=== PATIENT | male | born 1970 | race Caucasian/White ===

== ENCOUNTER 2019-09-08 10:19 | Outpatient (REF) | payer BC, SELFPAY ==
[2019-09-08 14:00] LABS: ALT 37 U/L (16-63); AST 20 U/L (15-37); Albumin 4.3 g/dL (3.4-5.0); Alkaline Phosphatase 54 U/L (46-116); Anion Gap 10.3 mmol/L (3-11); BUN 11 mg/dL (7-18); Bilirubin, Total 0.7 mg/dL (0.2-1.0); CO2 27.7 mmol/L (21.0-32.0); CREATININE 1.04 mg/dL (0.70-1.30); Calcium 9.4 mg/dL (8.5-10.1); Calculated LDL 130 mg/dL (<100); Chloride 102 mmol/L (98-107); Cholesterol 211 mg/dL (<200); Glucose 105 mg/dL (74-106); HDL Cholesterol 42 mg/dL (40-60); Potassium 4.3 mmol/L (3.5-5.1); Sodium 140 mmol/L (136-145); Total Protein 7.3 g/dL (6.4-8.2); Triglyceride 195 mg/dL (<150)
[2019-09-08 14:30] LABS: HCT 47.9 % (40.0-50.0); Mean Corp. HGB Concentration 33.4 g/dL (32.0-36.0); Mean Corpuscular Hemoglobin 29.7 pg (27.0-33.0); Mean Corpuscular Volume 88.9 fL (80-95); Mean Platelet Volume 11.1 fL (8.0-11.0); Platelet Count 275 x1000/uL (130-400); RBC 5.39 m/cumm (4.50-6.00); RBC Distribution Width 13.5 % (11.8-14.1); White Blood Cell Count 5.43 k/cumm (4.4-10.8)
== END 2019-09-08 10:39 ==
LOC: NCHCN 10:19
PROVIDERS: PCP Family Medicine; Visit Provider Family Medicine
DX: Z00.00 Encounter for general adult medical examination without abnormal findings (principal); I10 Essential (primary) hypertension; Z86.69 Personal history of other diseases of the nervous system and sense organs
CPT/HCPCS: 80053; 80061; 85027

== ENCOUNTER 2020-01-02 07:34 | Outpatient (CLI) | payer BC, SELFPAY ==
[2020-01-02 19:18] LABS: COVID-19 RT-PCR UVMMC Result Negative (Negative)
== END 2020-01-02 07:54 ==
PROVIDERS: PCP Family Medicine; Visit Provider Surgery
DX: Z01.818 Encounter for other preprocedural examination (principal); Z11.59 Encounter for screening for other viral diseases
CPT/HCPCS: U0003

== ENCOUNTER 2020-01-05 08:17 | Day surgery (SDC) | payer BC, SELFPAY ==
[2020-01-05 08:34] VITALS: BP 140/94; PULSE 79; RESP 16; TEMP 36.6; O2SAT 96
[2020-01-05] MEDS: Lactated Ringers 1,000 ML 80 ML IV (08:57)
[2020-01-05] MEDS: Sodium Citrate 30 ML CUP PO (09:25)
[2020-01-05] MEDS: Gabapentin 300 MG CAP PO (09:25)
--- NOTE | 2020-01-05 11:30 | W.PM.OP ---
Date of service: 01/05/20 Time of Service: 11:30 Operative Note Operative Note DATE OF PROCEDURE: 01/05/20 PRE-OP DIAGNOSIS: symptomatic umbilical hernia POST-OP DIAGNOSIS: same PROCEDURE: open repiar w/ small mesh SURGEON: Gloria Nichols PLODDING MACHINE OPERATOR: Gloria Mathews ANESTHESIA: MAC ESTIMATED BLOOD LOSS: 2 PATHOLOGY: none sent COMPLICATIONS: None Patient was transported to: same day Patient's condition: stable Procedure Description: SURGEON: Gloria Nichols DO ANESTHESIA: MAC. ESTIMATED BLOOD LOSS: Less than 5 mL. COMPLICATIONS: The patient tolerated the procedure well without complications. INDICATIONS: The patient is seen at the request of for symptomatic umbilical hernia and is here today for repair. Informed consent was obtained, explaining risks and benefits of the procedure including but not limited to bleeding, infection, pneumonia, blood clots, recurrence, chronic pain, chronic numbness, reaction to mesh necessitating removal, complications of anesthesia and other unforetold complications. DESCRIPTION OF PROCEDURE: The patient was brought to the operating suite and placed in supine position. Anesthesia was administered per the Department of Anesthesia. Patient prepped and draped in the usual sterile fashion using DuraPrep scrub solution. IV antibiotics were administered. Pause for the cause was done. A 1-inch incision was made superiorly to the umbilicus. Umbilicus was dissected off the fascia. The fascia was dissected off from surrounding tissue. There is omentum protruding. This was returned to the abdomen. It is not infarcted. A small Kerlix /Ventriluxpatch was then placed in the defect, the defect was closed, oversewn with 2-0 vicryl and was copiously irrigated. Deep tissue was approximated with 3-0 Vicryl and skin was approximated with 4-0 Monocryl in a running subcuticular fashion. Skin glue and sterile dressings are applied. The patient tolerated the procedure well without complications and was transferred to recovery room in stable condition. GLORIA NICHOLS DO
--- NOTE | 2020-01-05 11:33 | W.PM.DSUDISC ---
Discharge Plan Disposition Patient Disposition: HOME Condition: Good Discharge Details Reason For Visit: umbilical hernia repair Attending Provider: Gloria Leo Primary Care Provider: Keiry Earl Home Meds and New Rx's Prescriptions: New tramadol [Ultram] 50 mg tablet 50 mg PO Q6H PRN (Reason: pain) Qty: 7 RF: 0 Continued albuterol sulfate [Ventolin HFA] 90 mcg/actuation HFA aerosol inhaler 2 puff IH Q6H PRNRF: 0 sumatriptan succinate [Imitrex] 25 MG tablet 25 mg PO PRN PRNRF: 0 ibuprofen 200 mg Tablet 600 mg PO PRN PRNRF: 0 Discharge Instructions Additional Instructions: Dr. Leo HERNIA REPAIR ? POSTOPERATIVE INSTRUCTIONS Patients who have this type of surgery can usually be expected to return to work within two weeks and have minimal amounts of discomfort. ? ACTIVITY: The day of surgery should be spent resting. However, you can be up for short periods of time, I.E., going to the bathroom or kitchen. Avoid lifting or straining. On the day following surgery, you can be up and about as desired. ? LIFTING: Restrict your lifting to no more than five (5) pounds for the first week following surgery. For the second week after surgery, don?t lift more than ten pounds. We will decide when you are done with restrictions and when you can return to work, at your follow-up appointment. ? DIET: There are no dietary restrictions following surgery. However, you may want to start with small amounts of liquids to avoid nausea the day of surgery. ? INCISION CARE: You will notice purple skin glue closing the incision. Do not peel this off- it will wear off on its own. After 24 hours you may shower. The dressing may be replaced for comfort, but is not necessary. An ice bag may be applied to the incision for 72 hours following surgery. ? SIGNS OF INFECTION: It is not unusual to have some black and blue discoloration of the skin around the incision, but also scrotum and penis. It will slowly disappear. If you have any increased redness, drainage, fever (above 100 degrees), please contact your doctor for an examination. ? DISCOMFORT: You may expect to have some mild discomfort at the incision sight. If severe pain develops you should contact your doctor for further instructions. ? URINATION: Patients who have surgery occasionally have problems urinating. If you experience problems and are not able to urinate within 6 hours following your surgery, please call your doctor immediately or go to your nearest Emergency Room for evaluation. ? DRIVING: NO driving for five (5) days after surgery or if you are still taking narcotic pain medication. ? MEDICATIONS: Alternate Tylenol 1000mg by mouth every 8hours and Ibuprofen 600mg every 6hours. Take the Tylenol and ibuprofen continuously for the first 72hrs- not just when you have pain. Use the tramadol for breakthrough pain. Use ICE! Twenty minutes on, and then off, continuously for the first 72hours. If you are taking narcotic pain medication, follow the instructions on the label and do not drive. Pain medications can make you very constipated. Make sure you are moving your bowels daily. If not, take Miralax, milk of magnesia or magnesium citrate. ? REPORT: Unusual swelling, severe pain, unresolved nausea, signs of infection, or difficulty in urination to your surgeon. Follow up in clinic with Dr. Leo in 1-2 weeks. [phone] Activity:: see above Remove Dressings/Wound Care:: 24 hours Shower/Bathe:: 24 hours Diet:: As Tolerated Discharge Orders Discharge Orders: Discharge Order (Routine); Ordered 01/05/20 Ordered By: Gloria Leo DS: Diagnosis Discharge Diagnosis (1) Asthma: Status: None (2) Glaucoma: Status: Chronic (3) Umbilical hernia: Status: Acute
[2020-01-05 12:38] VITALS: BP 129/92; PULSE 55; RESP 16; TEMP 35.7; O2SAT 100
[2020-01-05 13:15] VITALS: BP 135/91; PULSE 53; RESP 16; TEMP 36; O2SAT 99
== END 2020-01-05 13:10 | disposition home or self-care (01) ==
PROVIDERS: PCP Family Medicine; Visit Provider Surgery
PROC: (CPT 49585; principal; 2020-01-05 10:00)
DX: K42.9 Umbilical hernia without obstruction or gangrene (principal); I10 Essential (primary) hypertension; J45.909 Unspecified asthma, uncomplicated
CPT/HCPCS: 49585; C1781; J2001

== ENCOUNTER 2021-06-03 10:35 | Outpatient (REF) | payer BC, SELFPAY ==
[2021-06-03 15:01] LABS: Calculated LDL 164 mg/dL (<100); Cholesterol 242 mg/dL (<200); HDL Cholesterol 46 mg/dL (40-60); Triglyceride 164 mg/dL (<150)
== END 2021-06-03 10:36 | disposition home or self-care (01) ==
LOC: NCHCN 10:35
PROVIDERS: PCP Family Medicine; Visit Provider Family Medicine
DX: I10 Essential (primary) hypertension (principal); Z00.00 Encounter for general adult medical examination without abnormal findings
CPT/HCPCS: 80061

== ENCOUNTER 2022-02-13 16:34 | Outpatient (REF) | payer BC, SELFPAY ==
[2022-02-13 18:57] LABS: ESR 6 mm/hr (0-20)
[2022-02-13 19:55] LABS: ALT 34 U/L (16-63); AST 25 U/L (15-37); Albumin 4.5 g/dL (3.4-5.0); Alkaline Phosphatase 41 U/L (46-116); BUN 15 mg/dL (7-18); Bilirubin, Total 0.5 mg/dL (0.2-1.0); CREATININE 0.8 mg/dL (0.70-1.30); Calcium 9.3 mg/dL (8.5-10.1); Chloride 99 mmol/L (98-107); Glucose 89 mg/dL (74-106); Potassium 3.8 mmol/L (3.5-5.1); Sodium 138 mmol/L (136-145); T4 7.4 ug/mL (4.7-13.3); TSH (W/Ref FT4) 1.88 uIU/mL (0.36-3.74); Total Protein 8.1 g/dL (6.4-8.2)
[2022-02-13 21:50] LABS: FREE T4 0.83 ng/dL (0.76-1.46)
[2022-02-14 17:40] LABS: T3,Free 3.7 pg/mL (2.8-5.3)
[2022-02-14 17:57] LABS: T3, Total 132 ng/dL (97-169)
[2022-02-14 19:47] LABS: PSA, Screening 0.9 ng/mL (<=3.5)
== END 2022-02-13 16:35 | disposition home or self-care (01) ==
LOC: NCHCN 16:34
PROVIDERS: PCP Family Medicine; Visit Provider Family Medicine
DX: Z12.5 Encounter for screening for malignant neoplasm of prostate (principal); F41.9 Anxiety disorder, unspecified; R19.7 Diarrhea, unspecified
CPT/HCPCS: 80053; 84153; 85652; 84436; 84439; 84443; 84480; 84481

== ENCOUNTER 2023-09-07 14:46 | Outpatient (REF) | payer BC, SELFPAY ==
[2023-09-07 22:21] LABS: ALT 46 U/L (16-63); AST 21 U/L (15-37); Albumin 4.5 g/dL (3.4-5.0); Alkaline Phosphatase 50 U/L (46-116); Anion Gap 11.6 mmol/L (3-11); BUN 16 mg/dL (7-18); Bilirubin, Total 0.5 mg/dL (0.2-1.0); CO2 26.4 mmol/L (21.0-32.0); Calcium 9.6 mg/dL (8.5-10.1); Calculated LDL 153 mg/dL (<100); Chloride 99 mmol/L (98-107); Cholesterol 251 mg/dL (<200); Estimated GFR 88.88 (mL/min/1.73m2); Glucose 94 mg/dL (74-106); HDL Cholesterol 44 mg/dL (40-60); Potassium 3.9 mmol/L (3.5-5.1); Sodium 137 mmol/L (136-145); Total Protein 7.8 g/dL (6.4-8.2); Triglyceride 274 mg/dL (<150)
[2023-09-07 23:04] LABS: Vitamin D 25 Total 17.9 ng/mL (30-100)
== END 2023-09-07 14:47 | disposition home or self-care (01) ==
LOC: NCHCN 14:46
PROVIDERS: PCP Family Medicine; Referring Provider Family Medicine; Visit Provider Family Medicine
DX: Z00.00 Encounter for general adult medical examination without abnormal findings (principal)
CPT/HCPCS: 80053; 80061; 82306; 84154

== ENCOUNTER 2024-01-01 07:05 | Day surgery (SDC) | payer BC, SELFPAY ==
--- NOTE | 2024-01-01 06:26 | W.ANESPRE ---
General Info Date of Service Date Performed: 01/01/24 Height: 5 ft 8 in Weight: 81 kg Body Mass Index (BMI): 27.1 Surgical Procedure: Operation Date: 01/01/24 08:20 Proposed Procedure Side Surgeon p Colonoscopy Morteza Mcdaniel MD Meds Allergies and Home Medications Allergies Allergy/AdvReac Type Severity Reaction Status Date / Time No Known Allergies Allergy Unverified 01/01/24 07:15 Home Medication Medication Instructions Recorded sumatriptan succinate 25 mg tablet 25 mg PO PRN PRN 03/02/13 (Imitrex) albuterol sulfate 90 mcg/actuation 2 puff inhalation Q6H PRN 12/25/19 aerosol inhaler (Ventolin HFA) ibuprofen 200 mg tablet 600 mg PO PRN PRN 12/30/19 tramadol 50 mg tablet (Ultram) 50 mg PO Q6H PRN pain #7 tabs 01/05/20 lisinopril 10 1 tab PO DAILY 09/25/23 mg-hydrochlorothiazide 12.5 mg tablet tamsulosin 0.4 mg capsule 0.4 mg PO DAILY 09/25/23 atorvastatin 20 mg tablet 20 mg PO DAILY 10/03/23 Current Visit Medications: Current Medications Generic Name Dose Route Start Last Admin Trade Name Freq PRN Reason Stop Dose Admin Ringer's Solution 1,000 mls @ 80 mls/hr 01/01/24 06:00 IV 01/30/24 23:59 INFUSION NAYELI IV Miscellaneous Supplies 1 each 01/01/24 06:00 Iv Access IV 01/30/24 23:59 DIRECTED NAYELI Sodium Chloride 0 ml 01/01/24 06:00 Normal Saline Flush 10 Ml Syr IV 01/30/24 23:59 PRN PRN Sodium Chloride 0 ml 01/01/24 06:00 Normal Saline 10 Ml Vial IJ 01/30/24 23:59 DIRECTED PRN Sterile Water 0 ml 01/01/24 06:00 Water,Injection,Sterile 10 Ml Vial IJ 01/30/24 23:59 DIRECTED PRN PFSH Active Problems Active Problems: Problem Status Onset Code Rectus diastasis M62.08 Encounter for diagnostic colonoscopy due to change in bowel habits R19.4 Pre-op evaluation Z01.818 Bone spur of left foot M77.52 Hypertension I10 History of seizure Z87.898 Glaucoma H40.9 Umbilical hernia K42.9 Medical History Medical History Anxiety IBS (irritable bowel syndrome) Tinea corporis Umbilical hernia Migraine Surgical History Surgical History History of eye surgery glaucoma History of foot surgery left bone spur exc. History of hernia repair Colonoscopy - IV Sedation Tobacco Smoking/Tobacco Use Status: Never Alcohol Alcohol Intake: current Alcohol intake frequency: a few times a month Alcohol type: beer and hard liquor Substance Use Substance use: Never Substance use type: does not use Vital Signs and Lab Results Vital Signs Most Recent Vital Signs in EMR: Temp Pulse Resp BP Pulse Ox 36.6 C 58 L 16 134/82 99 01/01/24 07:28 01/01/24 07:28 01/01/24 07:28 01/01/24 07:28 01/01/24 07:28 Lab Results Blood Type / Crossmatch: No Data to Display Complete Blood Count: No Data to Display Complete Metabolic Panel: No Data to Display Liver Function Panel: No Data to Display Coagulation Panel: No Data to Display Cardiac Panel: No Data to Display Arterial Blood Gas: No Data to Display Venous Blood Gas: No Data to Display Pancreas Panel: No Data to Display Thyroid Panel: No Data to Display Infectious Disease: No Data to Display Blood Cultures: No Data to Display Toxicology Panel: No Data to Display Anesthesia Assessment and Plan Anesthesia History Personal History: No History of Anesthesia Complications Family History: No Family History of Anesthesia Complications Exercise Tolerance Exercise Tolerance: Metabolic Equivalents>4 Cardiac & Pulmonary Exam Cardiac Exam: Normal S1/S2 Heart Sounds Pulmonary Exam: Clear Bilateral Breath Sounds Implantable Cardiac Device Does patient have a Pacemaker or an ICD?: No Airway Exam Known Difficult Airway: No Mallampati Class: 3 Mouth Opening: Narrow (< 3cm) Thyromental Distance: Greater than 3 cm Neck Range of Motion: Full ROM Neck Circumference: Normal Teeth Condition: Normal Dentition ASA Classification ASA Score: ASA 2 Emergency Case?: No NPO Status NPO Status: NPO Clears >2 hours, Solids >8 hours Anesthesia Plan Resuscitation Status: Full Code Anesthesia Technique: General Anesthesia Airway Planned: Natural Airway Monitors Used: Standard Monitors Preoperative Comments:: 53 yo male for colo. Sig PMHx: HTN, asthma, anxiety, never smoker, occ EtOH. Previous Anes: - hernia, dexmed/prop, natural airway, no issues.
[2024-01-01 07:28] VITALS: BP 134/82; PULSE 58; RESP 16; TEMP 36.6; O2SAT 99
[2024-01-01] MEDS: Lactated Ringers 1,000 ML 80 ML IV (07:30)
[2024-01-01 08:18] VITALS: BMI 27.1
--- NOTE | 2024-01-01 08:25 | W.COLOREPORT ---
Date of service: 01/01/24 Time of Service: 08:25 Colonoscopy Report Procedure Description: PROCEDURES PERFORMED: 1. Colonoscopy PREOPERATIVE DIAGNOSIS: Surveillance colonoscopy POSTOPERATIVE DIAGNOSIS: Normal terminal ileum, normal colon, grade 1 internal hemorrhoids SURGEON: Khalif Mcdaniel MD INDICATION FOR PROCEDURE: the patient is a 53-year-old man who does not have any significant symptoms and no family history of colon cancer. His last colonoscopy was 11 years ago and was normal. FINDINGS: The terminal ileum was normal. There were no polyps. There is no diverticular disease. In the rectum, grade 1 internal hemorrhoids were noted. SURVEILLANCE interval/FOLLOW-UP: 10 years SPECIMENS: None EBL: Minimal COMPLICATIONS: None QUALITY of prep: Excellent Procedure in detail: The patient gave written consent and was in agreement with the indications, the potential risks as well as the benefits of the procedure. They were taken to the endoscopy suite and laid in the left lateral decubitus position. A timeout was performed and anesthesia was administered which was tolerated well. I started the procedure. Digital rectal and visual examination was performed and grossly within normal limits. A well-lubricated flexible colonoscope was then introduced and passed without any notable difficulty all the way to the cecum identified by the ileocecal valve and the appendiceal orifice. The terminal ileum was briefly intubated and looked normal. The scope was then slowly withdrawn with the above-noted findings. The patient tolerated the procedure well and was taken to the PACU in hemodynamically stable condition.
--- NOTE | 2024-01-01 08:26 | W.PM.DSUDISC ---
Date of service: 01/01/24 Time of Service: 08:26 Discharge Plan Disposition Patient Disposition: Home Condition: Good Discharge Details Attending Provider: Morteza Mcdaniel Primary Care Provider: Keiry Earl Home Meds and New Rx's Prescriptions: No Action atorvastatin 20 mg tablet 20 mg PO DAILY albuterol sulfate [Ventolin HFA] 90 mcg/actuation HFA aerosol inhaler 2 puff IH Q6H PRN lisinopril-hydrochlorothiazide 10-12.5 mg tablet 1 tab PO DAILY tamsulosin 0.4 mg capsule 0.4 mg PO DAILY sumatriptan succinate [Imitrex] 25 MG tablet 25 mg PO PRN PRN Patient Comments: dose unknown ibuprofen 200 mg Tablet 600 mg PO PRN PRN tramadol [Ultram] 50 mg tablet 50 mg PO Q6H PRN (Reason: pain) Qty: 7 0RF Hold Instructions: Pt Stopped/Never Started Discharge Instructions Additional Instructions: FINDINGS: Everything looked normal. There were no polyps found. You have some mild hemorrhoid disease which is completely benign, and very common, and nothing needs to be done about it. Repeat another colonoscopy in 10 years. Stand Alone Forms: Anesthesia Discharge Inst., Colonoscopy Post Instructions, Jose Alejandro Hdz (DSU) Activity:: Activity as Tolerated Diet:: As Tolerated
[2024-01-01 08:49] VITALS: BP 163/97; PULSE 96; RESP 16; TEMP 37; O2SAT 97
[2024-01-01 09:15] VITALS: BP 137/93; PULSE 74; RESP 16; TEMP 36.6; O2SAT 100
--- NOTE | 2024-01-01 09:42 | W.ANESPOSTOP ---
Postoperative Evaluation Date, Time and Location Date Performed: 01/01/24 Time Performed: 09:42 Patient Location: Day Surgery Unit Vital Signs Most Recent Imported Vital Signs: Most Recent Vital Signs Temp Pulse Resp BP Pulse Ox 37.0 C 96 H 16 163/97 H 97 01/01/24 08:49 01/01/24 08:49 01/01/24 08:49 01/01/24 08:49 01/01/24 08:49 Pain Score Most Recent Pain Score: Most Recent Pain Score Pain Level 0 01/01/24 08:49 Assessment Mental Status: Awake (Alert & Oriented to Patient Baseline) Airway and Respiratory Function: Patent airway with normal (patient baseline) respiratory exam Cardiovascular Function: Hemodynamically Stable Hydration Status: Adequately Hydrated Nausea & Vomiting: No Nausea or Vomiting Pain: Pt. Denies Any Pain Peripheral Nerve Block: Patient did not receive a nerve block
== END 2024-01-01 09:42 | disposition home or self-care (01) ==
PROVIDERS: PCP Family Medicine; Visit Provider Student in an Organized Health Care Education/Training Program
PROC: 0DJD8ZZ Inspection of Lower Intestinal Tract, Via Natural or Artificial Opening Endoscopic (ICD-10-PCS; CPT 45378; principal; 2024-01-01 08:15)
DX: Z12.11 Encounter for screening for malignant neoplasm of colon (principal); I10 Essential (primary) hypertension; J45.909 Unspecified asthma, uncomplicated; K64.0 First degree hemorrhoids
CPT/HCPCS: 45378; 00123; J2704

== ENCOUNTER 2024-09-10 18:26 | Outpatient (REF) | payer BC, SELFPAY ==
[2024-09-10 22:11] LABS: COMMENT (LAB VIEW ONLY) 182.52 mg/dL; Microalb ug/mg Crea 6.9 ug/mg Cr
== END 2024-09-10 18:27 | disposition home or self-care (01) ==
LOC: NCHCN 18:26
PROVIDERS: PCP Family Medicine; Visit Provider Family Medicine
DX: I10 Essential (primary) hypertension (principal)
CPT/HCPCS: 82043; 82570

== ENCOUNTER → 2025-05-14 02:40 | Outpatient (CLI) | payer BC, SELFPAY ==
[2025-05-14] MEDS: Barium Sulfate 2% W/V-Creamy Vanilla Smoothie 450 ML BTL PO (09:20)
[2025-05-14] MEDS: Barium Sulfate 2% W/V-Berry Smoothie 450 ML BTL PO (09:21)
[2025-05-14] MEDS: Normal Saline - Diluent 50 ML VIAL IJ (11:17)
[2025-05-14] MEDS: Omnipaque 350 MG/ML 100 ML BTL IJ (11:18)
[2025-05-14] MEDS: Normal Saline Flush 10 ML SYR IVP (11:19)
--- NOTE | 2025-05-14 11:20 | DI.CT_ITS ---
Exam(s) CT ABDOMEN PELVIS W EXAM: CT ABDOMEN PELVIS W CLINICAL HISTORY: evaluate umbilical hernia repair infection,k42.9. TECHNIQUE: Imaging Protocol: Axial computed tomography images with coronal and sagittal reformatted images were created and reviewed CONTRAST MATERIAL: Intravenous: Omnipaque-350 75cc Oral: Yes. Oral contrast was also administered for bowel opacification. The oral contrast has reached the left side of the colon at time of image acquisition. COMPARISON: No exams were available for comparison FINDINGS: VISUALIZED LUNG BASES: No nodules nor pleural effusions evident. No infiltrates. ABDOMEN: Anterior abdominal wall/GI: There is mild induration in the region of the umbilicus. No hernia at this level. No drainable fluid collection. No prominent surrounding fat streaking. Subcutaneous tissue over the remainder of the abdomen and pelvis appears unremarkable. No evidence of inguinal hernias. No evidence of bowel obstruction. LIVER: Some steatosis is evident. Area of fatty parenchymal sparing noted in the medial aspect of the right hepatic lobe. No focal ominous liver lesions. No dilated intrahepatic ducts. GALLBLADDER/BILIARY: No obvious gallbladder pathology. CBD is not dilated. PANCREAS: There are 2 tiny parenchymal calcifications in the body of the pancreas. No mass at this level nor elsewhere in the pancreas. Pancreatic duct is not dilated. No CT evidence of acute pancreatitis. SPLEEN: Spleen is not enlarged. No obvious intrasplenic lesions. Splenic and portal veins are patent. ADRENALS: There are no significant adrenal masses. KIDNEYS:Tiny 3 mm cortical cyst in the right kidney noted. This benign finding does not require further workup. No solid renal masses. No calculi nor hydronephrosis.. ABDOMINAL AORTA: Abdominal aorta is not enlarged. LYMPH NODES:There is no retroperitoneal nor paraaortic adenopathy. PELVIS: GI: No evidence of appendicitis.No evidence of sigmoid diverticulitis. LYMPH NODES: There is no intrapelvic nor inguinal adenopathy. REPRODUCTIVE: Prostate size normal. Seminal vesicles unremarkable. URINARY BLADDER: Partially collapsed. No obvious abnormalities. OSSEOUS: No fractures and no significant osseous lesions. Chronic advanced disc space narrowing at L5-S1 level. No listhesis. IMPRESSION: 1. Mild increased density in the region of the umbilicus. No drainable abscess evident. No hernia sac evident at this level. 2. Hepatic steatosis. There is an area of fatty parenchymal sparing in the medial aspect of the right hepatic lobe. 3. No evidence of bowel obstruction. RADIATION DOSE DELIVERED: 539.62mGy.cm Total DLP DATA REPOSITORY: All CT scans at this facility are submitted to the National Radiology Data Registry (NRDR) Dose Index Registry (DIR) with the [employer] ([employer]). RADIATION OPTIMIZATION: All CT scans at this facility use at least one of these dose optimization techniques: automated exposure control; mA and/or kV adjustment per patient size (includes targeted exams where dose is matched to clinical indication); or iterative reconstruction.
== END ==
LOC: DI 02:40
PROVIDERS: PCP Family Medicine; Visit Provider Student in an Organized Health Care Education/Training Program
DX: K42.9 Umbilical hernia without obstruction or gangrene (principal)
CPT/HCPCS: 74177; 82565; J3490